=== PATIENT | female | born 1950 | race African-American/Black ===

== ENCOUNTER 2016-12-26 19:52 | Inpatient (IN) | payer OTHER, BC ==
[~2016-12-26] VITALS: Ht 167.6 cm; Wt 93.5 kg
[2016-12-26 22:32] LABS: BASOPHIL % 0.5 % (0-2); PLATELET COUNT 189 x10^3mcL (130-400)
[2016-12-26 22:36] LABS: RED CELL DISTRIBUTION WIDTH 16.3 % (11.5-14.5)
[2016-12-26 22:56] LABS: UA SPECIFIC GRAVITY <=1.005 (1.005-1.035); microscopic required? YES; urine erythrocyte TRACE (NEGATIVE)
[2016-12-26 23:05] LABS: ALBUMIN 3.4 g/dL (3.4-5.0); BILIRUBIN TOTAL 0.35 mg/dL (0.20-1.00); CALCIUM 9.2 mg/dL (8.5-10.1); CARBON DIOXIDE 30.8 mmol/L (21-32); CREATININE SERUM 1.4 mg/dL (0.6-1.0)
[2016-12-26 23:23] LABS: POTASSIUM SERUM 4.3 mmol/L (3.5-5.1)
[2016-12-26 23:27] LABS: TOTAL PROTEIN, SERUM 8.5 g/dL (6.4-8.2)
[2016-12-27] VITALS (7 sets, daily range): BP systolic 134–190; BP diastolic 61–82
[2016-12-27] MEDS ORDERED: CARVEDILOL25 M1 PO (00:42)
[2016-12-27] MEDS ORDERED: HYDROCHLOROTHIA25 MG PO (00:42)
[2016-12-27 01:47] LABS: AMPHETAMINE QUAL UR NONE DETECTED (NEG <=1000)
[2016-12-27 01:59] LABS: T4(THYROXINE) 10.4 ug/dL (4.7-13.3)
[2016-12-27 02:11] LABS: MAGNESIUM 2.1 mg/dL (1.8-2.4); PHOSPHOROUS 3.7 mg/dL (2.5-4.9)
[2016-12-27 02:20] LABS: CHOLESTEROL/HDL RATIO 2.5
[2016-12-27 02:40] LABS: FREE T4 1.51 ng/dL (0.76-1.46); FREE THYROXINE INDEX 3.8 ug/dL (1.4-4.5)
[2016-12-27 02:55] LABS: T3 TOTAL 0.8 ng/mL
[2016-12-27 06:28] LABS: CALCIUM 8.7 mg/dL (8.5-10.1); CARBON DIOXIDE 29.5 mmol/L (21-32); CREATININE SERUM 1.1 mg/dL (0.6-1.0); POTASSIUM SERUM 3.5 mmol/L (3.5-5.1)
[2016-12-28 06:32] VITALS: BP 142/70
[2016-12-28 07:48] LABS: CALCIUM 8.4 mg/dL (8.5-10.1); CARBON DIOXIDE 26.4 mmol/L (21-32); CHLORIDE SERUM 101 mmol/L (98-107); CREATININE SERUM 0.9 mg/dL (0.6-1.0); GFR1 > 60 mL/min; GLUCOSE SERUM 273 mg/dL (74-106); MAGNESIUM 1.6 mg/dL (1.8-2.4); PHOSPHOROUS 3.1 mg/dL (2.5-4.9); POTASSIUM SERUM 3.1 mmol/L (3.5-5.1); SODIUM SERUM 137 mmol/L (136-145)
[2016-12-28 07:55] VITALS: BP 152/72
[2016-12-28 09:37] LABS: PLATELET COUNT 145 x10^3mcL (130-400)
[2016-12-28 09:38] LABS: RED CELL DISTRIBUTION WIDTH 16.4 % (11.5-14.5)
[2016-12-28 12:25] VITALS: BP 141/70
[2016-12-28 16:55] LABS: ATYPICAL LYMPH 2 %; BAND NEUTROPHIL 4 % (0-10); MONOCYTE 6 % (0-7); SEGMENTED NEUTROPHILS 57 % (37-75); rbc morphology (normal/abnorm) ABNORMAL (NORMAL)
[2016-12-28 16:56] LABS: PLATELET MORPHOLOGY PLATELETS NORMAL
[2016-12-28 17:36] VITALS: BP 155/72
[2016-12-28 20:40] VITALS: BP 145/68
[2016-12-29 05:11] VITALS: BP 141/66
[2016-12-29 07:02] LABS: BASOPHIL % 0.7 % (0-2); PLATELET COUNT 133 x10^3mcL (130-400)
[2016-12-29 07:04] LABS: RED CELL DISTRIBUTION WIDTH 16.3 % (11.5-14.5)
[2016-12-29 07:26] LABS: CALCIUM 8.2 mg/dL (8.5-10.1); CHLORIDE SERUM 103 mmol/L (98-107); CREATININE SERUM 0.8 mg/dL (0.6-1.0); GFR1 > 60 mL/min; GLUCOSE SERUM 248 mg/dL (74-106); MAGNESIUM 1.6 mg/dL (1.8-2.4); PHOSPHOROUS 3.1 mg/dL (2.5-4.9); POTASSIUM SERUM 3.4 mmol/L (3.5-5.1); SODIUM SERUM 135 mmol/L (136-145)
[2016-12-29 07:52] VITALS: BP 166/47
[2016-12-29] MEDS ORDERED: LIPI20 PO (09:20)
[2016-12-29] MEDS ORDERED: CORE25 PO (09:20)
[2016-12-29] MEDS ORDERED: OSCD PO (09:21)
[2016-12-29] MEDS ORDERED: ECO81 PO (09:21)
[2016-12-29] MEDS ORDERED: THERA TABS1 TAB PO (09:22)
[2016-12-29] MEDS ORDERED: GLU10 PO (09:24)
[2016-12-29] MEDS ORDERED: LEVEMIR100 U/M1 SQ (09:25)
[2016-12-29] MEDS ORDERED: METFORMIN HCL1000 MG PO (09:38)
[2016-12-29 11:54] VITALS: BP 143/67
[2016-12-29 11:58] VITALS: BP 143/67
== END 2016-12-29 14:35 | disposition home or self-care (01) | DRG 637 ==
LOC: ED 19:52 → DU 12-27 00:32 → MU 12-29 07:48
PROVIDERS: Emergency Medicine; Family Medicine Sports Medicine; ADMIT Student in an Organized Health Care Education/Training Program
DX: E11.00 Type 2 diabetes mellitus with hyperosmolarity without nonketotic hyperglycemic-hyperosmolar coma (NKHHC) (principal); N17.0 Acute kidney failure with tubular necrosis; E87.1 Hypo-osmolality and hyponatremia; D68.69 Other thrombophilia; C18.9 Malignant neoplasm of colon, unspecified; C78.7 Secondary malignant neoplasm of liver and intrahepatic bile duct; E11.51 Type 2 diabetes mellitus with diabetic peripheral angiopathy without gangrene; E87.6 Hypokalemia; E87.8 Other disorders of electrolyte and fluid balance, not elsewhere classified; I10 Essential (primary) hypertension; Z93.3 Colostomy status; Z68.33 Body mass index [BMI] 33.0-33.9, adult; Z79.899 Other long term (current) drug therapy
CPT/HCPCS: 82962; 83880; 84439; J1815; J2405; J7030; Q0092

== ENCOUNTER 2017-03-20 17:46 | Inpatient (IN) | payer OTHER, BC ==
[~2017-03-20] VITALS: Ht 167.6 cm; Wt 98.6 kg
[~2017-03-20 17:46] MED LIST: CARVEDILOL25 M1 PO; CORE25 PO; ECO81 PO; GLU10 PO; HYDROCHLOROTHIA25 MG PO; LEVEMIR100 U/M1 SQ; LIPI20 PO; METFORMIN HCL1000 MG PO; OSCD PO; THERA TABS1 TAB PO
[2017-03-20 18:02] VITALS: Ht 167.6 cm; Wt 98.6 kg
[2017-03-20 20:04] LABS: BASOPHIL % 0.3 % (0-2); PLATELET COUNT 178 x10^3mcL (130-400); RED CELL DISTRIBUTION WIDTH 18.2 % (11.5-14.5)
[2017-03-20 20:17] LABS: ALKALINE PHOSPHATASE 119 U/L (46-116); ALT/SGPT 41 U/L (14-59); AST/SGOT 57 U/L (15-37); CALCIUM 9.2 mg/dL (8.5-10.1); CARBON DIOXIDE 24.5 mmol/L (21-32); CHLORIDE SERUM 99 mmol/L (98-107); CREATININE SERUM 0.9 mg/dL (0.6-1.0); GFR1 > 60 mL/min; GLUCOSE SERUM 175 mg/dL (74-106); SODIUM SERUM 135 mmol/L (136-145); TOTAL PROTEIN, SERUM 7.6 g/dL (6.4-8.2)
[2017-03-20 20:23] LABS: ALBUMIN 2.2 g/dL (3.4-5.0)
[2017-03-20 20:25] LABS: POTASSIUM SERUM 2.9 mmol/L (3.5-5.1)
[2017-03-20] MEDS ORDERED: PROCHLORPERAZIN10 MG (23:32)
[2017-03-20] MEDS ORDERED: POTASSIUM CHLO20 ME1 (23:32)
[2017-03-20] MEDS ORDERED: ZOF4 (23:33)
[2017-03-20] MEDS ORDERED: LANTUS SOLOS100 U/M1 (23:33)
[2017-03-21 03:03] LABS: MAGNESIUM 1.4 mg/dL (1.8-2.4); PHOSPHOROUS 2.1 mg/dL (2.5-4.9)
[2017-03-21 03:11] LABS: CHOLESTEROL/HDL RATIO 2.1
[2017-03-21 03:15] LABS: FREE T4 1.47 ng/dL (0.76-1.46); FREE THYROXINE INDEX 2.8 ug/dL (1.4-4.5); T4(THYROXINE) 7.7 ug/dL (4.7-13.3)
[2017-03-21 03:44] LABS: UA SPECIFIC GRAVITY 1.025 (1.005-1.035); microscopic required? YES; urine erythrocyte 1+ (NEGATIVE)
[2017-03-21 03:51] LABS: AMPHETAMINE QUAL UR NONE DETECTED (NEG <=1000)
[2017-03-21 03:58] LABS: T3 TOTAL 0.73 ng/mL
[2017-03-21 04:30] VITALS: BP 157/72
[2017-03-21 05:02] VITALS: BP 157/72
[2017-03-21 09:56] VITALS: BP 155/63
[2017-03-21 13:11] VITALS: BP 113/63; BP 138/79
[2017-03-21 16:44] LABS: CALCIUM 8.2 mg/dL (8.5-10.1); CARBON DIOXIDE 24.8 mmol/L (21-32); CHLORIDE SERUM 98 mmol/L (98-107); CREATININE SERUM 0.8 mg/dL (0.6-1.0); GFR1 > 60 mL/min; GLUCOSE SERUM 239 mg/dL (74-106); MAGNESIUM 2.2 mg/dL (1.8-2.4); PHOSPHOROUS 3.4 mg/dL (2.5-4.9); SODIUM SERUM 133 mmol/L (136-145)
[2017-03-21 16:49] LABS: BASOPHIL % 0.5 % (0-2); PLATELET COUNT 158 x10^3mcL (130-400)
[2017-03-21 16:50] LABS: POTASSIUM SERUM 2.7 mmol/L (3.5-5.1)
[2017-03-21 16:51] LABS: RED CELL DISTRIBUTION WIDTH 18.3 % (11.5-14.5)
[2017-03-21 17:32] VITALS: BP 121/56
[2017-03-21 21:56] LABS: CALCIUM 8.6 mg/dL (8.5-10.1); CARBON DIOXIDE 25.7 mmol/L (21-32); CHLORIDE SERUM 100 mmol/L (98-107); CREATININE SERUM 0.8 mg/dL (0.6-1.0); GFR1 > 60 mL/min; GLUCOSE SERUM 122 mg/dL (74-106); POTASSIUM SERUM 3.3 mmol/L (3.5-5.1); SODIUM SERUM 135 mmol/L (136-145)
[2017-03-21 22:12] VITALS: BP 108/54
[2017-03-22 05:43] VITALS: BP 107/55
[2017-03-22 07:49] LABS: CALCIUM 8.7 mg/dL (8.5-10.1); CARBON DIOXIDE 22.5 mmol/L (21-32); CHLORIDE SERUM 105 mmol/L (98-107); CREATININE SERUM 0.7 mg/dL (0.6-1.0); GFR1 > 60 mL/min; GLUCOSE SERUM 136 mg/dL (74-106); MAGNESIUM 1.8 mg/dL (1.8-2.4); PHOSPHOROUS 3.3 mg/dL (2.5-4.9); POTASSIUM SERUM 3.6 mmol/L (3.5-5.1); SODIUM SERUM 138 mmol/L (136-145)
[2017-03-22 07:54] LABS: BASOPHIL % 0.4 % (0-2); PLATELET COUNT 153 x10^3mcL (130-400)
[2017-03-22 08:11] LABS: RED CELL DISTRIBUTION WIDTH 18.7 % (11.5-14.5)
[2017-03-22 10:02] VITALS: BP 118/63
[2017-03-22 18:05] VITALS: BP 131/56
[2017-03-22 21:05] VITALS: BP 121/61
[2017-03-23 05:17] VITALS: BP 118/58
[2017-03-23 08:53] VITALS: BP 111/69
[2017-03-23 12:28] LABS: BASOPHIL % 1.3 % (0-2); PLATELET COUNT 186 x10^3mcL (130-400)
[2017-03-23 12:30] LABS: RED CELL DISTRIBUTION WIDTH 18.8 % (11.5-14.5)
[2017-03-23 12:32] LABS: CALCIUM 7.7 mg/dL (8.5-10.1); CARBON DIOXIDE 25.9 mmol/L (21-32); CHLORIDE SERUM 106 mmol/L (98-107); CREATININE SERUM 0.8 mg/dL (0.6-1.0); GFR1 > 60 mL/min; GLUCOSE SERUM 200 mg/dL (74-106); POTASSIUM SERUM 3.2 mmol/L (3.5-5.1); SODIUM SERUM 139 mmol/L (136-145)
[2017-03-23 18:00] VITALS: BP 139/61
[2017-03-23 21:12] VITALS: BP 132/62
[2017-03-24 04:45] VITALS: BP 127/60
[2017-03-24 07:37] LABS: BASOPHIL % 1.1 % (0-2); PLATELET COUNT 220 x10^3mcL (130-400)
[2017-03-24 07:42] LABS: RED CELL DISTRIBUTION WIDTH 19.2 % (11.5-14.5)
[2017-03-24 08:28] LABS: CALCIUM 8.4 mg/dL (8.5-10.1); CARBON DIOXIDE 22.7 mmol/L (21-32); CHLORIDE SERUM 108 mmol/L (98-107); CREATININE SERUM 0.8 mg/dL (0.6-1.0); GFR1 > 60 mL/min; GLUCOSE SERUM 96 mg/dL (74-106); POTASSIUM SERUM 3.7 mmol/L (3.5-5.1); SODIUM SERUM 141 mmol/L (136-145)
[2017-03-24 09:37] VITALS: BP 140/71
[2017-03-24] MEDS ORDERED: LAC PO (11:24)
[2017-03-24] MEDS ORDERED: CIPROFLOXACIN500 MG PO (11:27)
[2017-03-24] MEDS ORDERED: FLA500 PO (11:30)
[2017-03-24 12:42] VITALS: BP 140/71
[2017-03-24 13:16] VITALS: BP 140/71
== END 2017-03-24 14:53 | disposition home or self-care (01) | DRG 919 ==
LOC: ED 17:46 → DU 23:55 → MU 23:55 → DU 03-21 03:50 → MU 03-22 10:15
PROVIDERS: Emergency Medicine; Family Medicine; Student in an Organized Health Care Education/Training Program
DX: K91.870 Postprocedural hematoma of a digestive system organ or structure following a digestive system procedure (principal); N17.0 Acute kidney failure with tubular necrosis; E43 Unspecified severe protein-calorie malnutrition; C18.9 Malignant neoplasm of colon, unspecified; C78.7 Secondary malignant neoplasm of liver and intrahepatic bile duct; E87.1 Hypo-osmolality and hyponatremia; E87.6 Hypokalemia; E83.42 Hypomagnesemia; E83.39 Other disorders of phosphorus metabolism; N28.1 Cyst of kidney, acquired; R31.9 Hematuria, unspecified; E11.51 Type 2 diabetes mellitus with diabetic peripheral angiopathy without gangrene; E11.65 Type 2 diabetes mellitus with hyperglycemia; I10 Essential (primary) hypertension; R80.9 Proteinuria, unspecified; D63.8 Anemia in other chronic diseases classified elsewhere; E78.5 Hyperlipidemia, unspecified; Z93.3 Colostomy status; Z90.49 Acquired absence of other specified parts of digestive tract; Z79.4 Long term (current) use of insulin; Z79.82 Long term (current) use of aspirin; Z79.899 Other long term (current) drug therapy; Z68.34 Body mass index [BMI] 34.0-34.9, adult; Z87.891 Personal history of nicotine dependence; Y83.6 Removal of other organ (partial) (total) as the cause of abnormal reaction of the patient, or of later complication, without mention of misadventure at the time of the procedure; Y92.009 Unspecified place in unspecified non-institutional (private) residence as the place of occurrence of the external cause
CPT/HCPCS: 82962; 83880; 84439; C9113; J0744; J1170; J1644; J1815; J2270; J2405; J3475; J3480; J3490; J7030; Q0092; Q9967